=== PATIENT | female | born 1950 | race African-American/Black ===

== ENCOUNTER 2023-01-16 17:33 | Emergency (ER) | payer OTHER ==
[~2023-01-16] VITALS: Ht 170.2 cm; Wt 77.0 kg
[2023-01-16 17:43] VITALS: O2SAT 98
[2023-01-16 19:15] LABS: HEMATOCRIT. 34.2 % (36.0-48.0); HEMOGLOBIN. 11.3 g/dL (12.0-16.0); MEAN CORPUSCULAR HEMOGLOBIN 26.1 pg (28.0-32.0); MEAN CORPUSCULAR HGB CONC 32.9 g/dL (31.0-37.0); MEAN CORPUSCULAR VOLUME 79.2 fL (81.0-99.0); MEAN PLATELET VOLUME 9.3 fl (7.4-10.4); PLATELET 169 x1000/uL (130-400); RED BLOOD CELL COUNT 4.31 mill/uL (4.2-5.4); RED CELL DISTRIBUTION WIDTH 15.5 % (11.6-14.6); WHITE BLOOD COUNT 7.8 x1000/uL (4.5-11.0)
[2023-01-16 19:18] LABS: DIFFERENTIAL COMMENT 1
[2023-01-16 19:21] LABS: CHLORIDE 106 mEq/L (98-107); INDEX HEMOLYSI 1 (1-3); INDEX ICTERIC 1 (1-4); INDEX LIPEMIC 1 (1-3); POTASSIUM 3.6 mEq/L (3.5-5.1); SODIUM 137 mEq/L (136-145)
[2023-01-16 19:23] LABS: PROTHROMBIN TIME 10.7 sec (9.6-11.0)
[2023-01-16 19:25] LABS: CLARITY URINE CLEAR (CLEAR); COLOR URINE YELLOW (YELLOW); GLUCOSE URINE NEGATIVE (NEGATIVE); KETONES URINE NEGATIVE (NEGATIVE); LEUKOCYTE ESTERASE URINE 1+ (NEGATIVE); NITRITE URINE POSITIVE (NEGATIVE); OCCULT BLOOD URINE TRACE (NEGATIVE); PH URINE 5.5 (4.5-8.0); PROTEIN URINE 1+ (NEGATIVE); SPECIFIC GRAVITY URINE 1.018 (1.005-1.030)
[2023-01-16 19:32] LABS: ALANINE AMINOTRANSFERASE 28 IU/L (13-61); ALBUMIN 3.3 g/dL (3.4-5.0); ASPARTATE AMINOTRANSFERASE 32 IU/L (15-37); BILIRUBIN TOTAL 0.4 mg/dL (0.1-1.0); CALCIUM 8.4 mg/dL (8.5-10.1); CARBON DIOXIDE 28 mEq/L (21-32); CREATININE 1.1 mg/dL (0.6-1.3); GLUCOSE 76 mg/dL (70-105); PROTEIN TOTAL 6.7 g/dL (6.0-8.3); TROPONIN I HIGH SENSITIVITY 5 ng/L (<54); UREA NITROGEN BLOOD 19 mg/dL (7-21)
[2023-01-16 19:34] LABS: MICROCYTOSIS 1+; PLATELET ESTIMATE NORMAL
[2023-01-16] MEDS ORDERED: BLOOD SUGAR DIAGNOSTIC STRIP TEST ONE (20:00)
[2023-01-16] MEDS ORDERED: CEFTRIAXONE 1GM PREMIX 50 ML IV ONE (20:00)
[2023-01-16 20:07] LABS: RBC URINE 0-2 /hpf (0-2)
[2023-01-16 20:08] LABS: BACTERIA URINE 4+; SQUAMOUS EPITHELIAL CELL URINE RARE /lpf (RARE/1+); YEAST URINE NONE SEEN
[2023-01-16] MEDS ORDERED: CEFP200T13 MT (20:20)
[2023-01-16] MEDS ORDERED: HYDRALAZINE 20MG/ML VIAL IV ONE (21:30)
[2023-01-16] MEDS ORDERED: DEXTROSE 50% WATER 50ML SYRINGE IV ONE (22:45)
[2023-01-16] MEDS ORDERED: DEXT 10% WATER 1,000 ML IV NR (23:30)
[2023-01-17 02:00] VITALS: BP 127/58; PULSE 55; RESP 16; TEMP 98.2
== END 2023-01-17 02:50 | disposition short-term general hospital (02) ==
LOC: ER 17:33
DX: E11.649 Type 2 diabetes mellitus with hypoglycemia without coma (principal); N39.0 Urinary tract infection, site not specified; I10 Essential (primary) hypertension
CPT/HCPCS: 80053; 81003; 82962 ×2; 85025; 85610; 84484; 36415; 71045; 93005; 96361; 96374; 99291; J0696; J0360; Z7610